=== PATIENT | female | born 1980 | race Caucasian/White ===

== ENCOUNTER 2016-08-26 11:57 | Emergency (ER) | payer OTHER | END 2016-08-26 12:00 | disposition home or self-care (01) | LOC: CED 11:57 | DX: R41.3 Other amnesia (principal); J45.909 Unspecified asthma, uncomplicated; I10 Essential (primary) hypertension; F41.9 Anxiety disorder, unspecified; F32.9 Major depressive disorder, single episode, unspecified; Z88.0 Allergy status to penicillin; Z88.8 Allergy status to other drugs, medicaments and biological substances | CPT/HCPCS: 99282 ==

== ENCOUNTER 2016-12-31 10:10 | Inpatient (IN) | payer OTHER ==
--- NOTE | ~2016-12-31 | DS ---
Unit #: [id number] #: [id number] Patient: KEKE SUMMERS [id number] [facility] [address] [place] [address] [id number] I MR#: [id number] NAME: KEKE SUMMERS ROOM: P252 Age: 36 Sex: F Admission Date: 12/31/2016 : 1980 Discharge Date: 01/02/2017 Attending Physician: Wisam Gilliland M.D. Primary Care Physician: Generic Doctor Not In System DISCHARGE SUMMARY REASON FOR ADMISSION The patient is a 36-year-old single white female admitted to the [facility] after she had presented to this facility voicing positive suicidal ideation. HOSPITAL COURSE The patient was seen by this physician on the afternoon of 01/01/2017. At that time, the patient demanded discharge from the hospital stating that she would refuse to participate in any programming or leave the room for any reason. It was explained to the patient that she had made suicidal threats at the time of her admission to the hospital and hence would need to be observed for another 24 hours. At this, the patient slammed the door loudly and nearly required management. At no point did the patient allow during interview for any discussion of her medications, prior treatment, etc., instead demanding the entire time to leave the hospital and claiming that she had been on the unit since 10:30 the day before and had been ignored by this physician. It was subsequent noted that the patient had not arrived on the unit till approximately 3 p.m. about 2 hours after this physician had finished rounding on the unit. When generally confronted regarding this, the patient accused this physician of lying. Whatever the case, when seen by this physician on the morning of 01/02, the patient again denied suicidal ideation. She remained seclusive to room with little participation within the therapeutic milieu. At that time, she demanded to know why this physician had done nothing to change her medications stating "that is why I came here." I explained to the patient that we had not been able to engage in a thorough evaluation of her medication treatment history, response to medications. However, given her incessant demands for discharge, I suggested that she consider medication changes with outpatient providers in the future. At that point, discharge was ordered. FINAL DIAGNOSES 1. Dysthymic disorder. 2. Borderline personality disorder. 3. Environmental allergies. 4. Asthma. 5. Hypertension. 6. Osteoarthritis. DISPOSITION ON DISCHARGE The patient was discharged on the following medications: 1. Metoprolol ER 25 mg daily for hypertension. 2. Meloxicam 15 mg daily for pain. 3. Cymbalta 60 mg daily for depression. Unit #: [id number] #: [id number] Patient: KEKE SUMMERS 4. Hydrochlorothiazide 12.5 mg daily for hypertension. 5. Singulair 10 mg daily for environmental allergies. 6. Bupropion SR 150 mg daily for depression. 7. Junel control 1 tablet daily for contraception. 8. Ventolin HFA 2 puffs q. 4 hours p.r.n. shortness of air. 9. Tetrahydrozoline eye drops 0.05% for red eyes. 10. Epi-Pen for allergic reaction. 11. Advair Diskus 150/50 twice daily for shortness of air. DIET AND ACTIVITY No dietary or physical restrictions placed on the patient at the time of discharge given her lack of investment in treatment and degree of entitlement and characterologic pathology. PROGNOSIS Must be considered guarded. Dictated by... Zully Wick TD: 01/03/2017 09:16 JOB #: [id number] DISCHARGE SUMMARY Page 1 of 1 X Wisam Gilliland MD X DISCHARGE SUMMARY
--- NOTE | ~2016-12-31 | PA ---
Unit #: [id number] #: [id number] Patient: KEKE SUMMERS [id number] [facility] [address] [place] [address] [id number] I MR#: [id number] NAME: KEKE SUMMERS ROOM: P252 Age: 36 Sex: F Admission Date: 12/31/2016 : 1980 Date of Assessment: 01/01/2017 Attending Physician: Wisam Gilliland M.D. Admitting Physician: Wisam Gilliland M.D. Primary Care Physician: Generic Doctor Not In System PSYCHIATRIC ASSESSMENT IDENTIFYING INFORMATION The patient is a 36-year-old white female admitted after she has presented to this facility claiming to be suicidal. CHIEF COMPLAINT "Let me the fuck out of here." INFORMANT(S) Patient and chart, reliability good. HISTORY OF PRESENT ILLNESS The patient is a 36-year-old white female who was admitted after presenting to this facility yesterday voiding positive suicidal ideation. The patient reported that she felt as though she was "going to have a breakdown" and reported that she had been able to leave her bed for 2 days. She also reported appetite but had reported positive thoughts of suicide with plan to crash her automobile. The patient has recently moved to [facility] from [place], [place], which she describes as "hell." She reports that she did see a therapist and psychiatrist there but has not yet made arrangements to follow with the psychiatrist in the [place] area. The patient is today demanding discharge from the hospital and denying suicidal ideation. She did in fact deny suicidal ideation at the time of her initial evaluation here. She is prescribed Cymbalta and Wellbutrin for her depressive symptoms and states that she has been compliant with these. She denies abuse of any psychoactive substances. She lives with her 13-year-old child and live-in boyfriend. The patient is currently angrily demanding discharge from the hospital and refusing to participate within the therapeutic milieu. PAST PSYCHIATRIC HISTORY The patient denies prior psychiatric hospitalization. She has been treated by a therapist and psychiatrist in [place] in the past. PAST MEDICAL HISTORY The patient suffers from hypertension, osteoarthritis, environmental allergies, and asthma. MEDICATIONS 1. Advair Discuss. 2. Epi-Pen. 3. Tetrahydrozoline. 4. Ventolin. 5. Junel. Unit #: [id number] #: [id number] Patient: KEKE SUMMERS 6. Bupropion SR. 7. Singulair. 8. Hydrochlorothiazide. 9. Cymbalta. 10. Meloxicam. 11. Metoprolol ER. ALLERGIES Penicillin, latex, detergent, Reglan, shell fish. FAMILY HISTORY The patient reports that Asperger's runs on my father's side of the family. SOCIAL HISTORY The patient lives with her live-in boyfriend and 13-year-old child. 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 MENTAL STATUS EXAMINATION Examination at this time reveals the patient to be an obese somewhat disheveled white female appearing her stated age. She is in no apparent physical distress at the time of the examination. She is awake, alert, and oriented in all spheres. Her mood is irritable and angry. Her affect labile. Speech is generally well-coherent. There are no gross deficits in memory or cognition noted. Intelligence is judged to be in the average range based on fund of knowledge. The patient is less than optimally cooperative during interview. She is currently denying suicidal or homicidal ideation or psychotic features. Judgment and insight appear to be reasonably intact. ASSETS AND LIABILITIES The patient's assets are to be assessed. Liabilities: Profound characterologic pathology. DIAGNOSTIC IMPRESSION 1. Dysthymic disorder. 2. Borderline personality disorder. 3. Environmental allergies. 4. Asthma. 5. Hypertension. 6. Osteoarthritis. TREATMENT PLAN The patient remains hospitalized for safety and stabilization given threats made at the time of admission. I have spoken with the patient today frankly regarding our expectations of our participation within the therapeutic milieu. She is refusing to leave her room to eat or participate in any milieu activities inasmuch as it is doubtful that she will gain any benefit from being in the hospital. I will plan to observe the patient for 24 hours not attempting any medication changes. At the very least, it will be my hope to help the patient with arrangements for post-discharge treatment here in the [facility]. It is worth noting that the patient claims that she arrived at this facility yesterday at 10:30 and on the unit at 12:30 when in fact she arrived at the hospital at 12:29 and was admitted to the unit after 3 o'clock. There is an extremely strong manipulative and characterologic streak to the patient's presentation as well as a strong sense of entitlement evident during today's interview. Unit #: [id number] #: [id number] Patient: KEKE SUMMERS ESTIMATED LENGTH OF STAY 1 to 2 days. Dictated by... Wisam Gilliland M.D. CB/lorri TD: 01/01/2017 13:47 JOB #: [id number] PSYCHIATRIC ASSESSMENT Page 1 of 1 X Wisam Gilliland MD X PSYCHIATRIC ASSESSMENT
--- NOTE | ~2016-12-31 | HP ---
Unit #: [id number] #: [id number] Patient: KEKE SUMMERS [id number] [place] [address] [id number] I MR#: [id number] NAME: KEKE SUMMERS ROOM: P252 Age: 36 Sex: F Admission Date: 12/31/2016 : 1980 Attending Physician: Wisam Gilliland M.D. Admitting Physician: Wisam Gilliland M.D. Primary Care Physician: Pratik Doctor Not In System HISTORY AND PHYSICAL HISTORY OF PRESENT ILLNESS with depression and after verbalizing wanting to hurt herself. PAST MEDICAL HISTORY 1. Obesity. 2. High blood pressure. PAST SURGICAL HISTORY 1. T and A. 2. ACL repair. 3. Bilateral carpal tunnel release. ALLERGIES Penicillin, Reglan. SOCIAL HISTORY Vaps on a regular basis. Drinks alcohol rarely. Admits to using marijuana daily. FAMILY HISTORY Medically noncontributory. REVIEW OF SYSTEMS CONSTITUTIONAL: No fever or chills. HEENT: Denies any sore throat, ear pain or runny nose. CARDIOVASCULAR: Denies chest pain, irregular heart rhythm or palpitations. CHEST: Denies shortness of breath or cough. No hemoptysis. GASTROINTESTINAL: Denies nausea, vomiting, diarrhea or chronic constipation. ENDOCRINE: Denies history of increased thirst or urination. No recent significant weight loss or gain. GENITOURINARY: Denies dysuria, frequency, or hematuria. SKIN: Denies any rashes. HEMATOLOGIC: Denies history of increased bleeding or bruising. MUSCULOSKELETAL: Denies any hot, swollen joints. No generalized muscle pain. NEUROLOGIC: Denies problems with vision or speech. No frequent, severe headaches. No numbness, tingling or weakness in any extremities. Denies loss of bladder or bowel control. CURRENT MEDICATIONS 1. Zyban SR 150 mg daily. Unit #: [id number] #: [id number] Patient: KEKE SUMMERS 2. Singulair 10 mg daily. 3. HCTZ 12.5 mg daily. 4. Cymbalta 60 mg daily. 5. Mobic 15 mg daily. 6. Toprol XL 25 mg daily. 7. Symbicort b.i.d. 8. Milk of Magnesia p.r.n. 9. Maalox p.r.n. 10. Tylenol p.r.n. PHYSICAL EXAMINATION GENERAL: Alert, well-nourished, in no apparent distress. VITAL SIGNS: Blood pressure 120/76, heart rate 86, respirations 16, temperature 98.6. WEIGHT: 207. HEIGHT: 5 feet 6 inches. SKIN: Warm and dry without rash or lesion. HEENT: Normocephalic. TMs not viewed. Oral and nasal passages clear. Conjunctivae clear. PERRLA. EOMs intact. NECK: Supple without lymphadenopathy or thyromegaly. HEART: Regular rate and rhythm without murmur. LUNGS: Clear. ABDOMEN: Soft, nontender. : Not done. EXTREMITIES: No evidence of cyanosis, clubbing or edema. Moves all without focal deficit. NEUROLOGICAL: Grossly within normal limits. Cranial Nerves: II: Visual more are intact. III, IV AND : Extraocular movements are intact. Pupils are equal, round and reactive to light. V: Facial sensation is grossly normal. VII: Facial movements and expression are normal. VIII: Auditory acuity grossly intact. IX, X: Uvula is midline. Phonation is normal. XI: Patient shrugs shoulders and turns head normally. XII: Tongue protrudes in the midline. Sensory and Motor Function: Sensory and motor sensation is grossly normal. Motor: moves all extremities well. Coordination: Gait is normal. Deep Tendon Reflexes: Intact. IMPRESSION Psychiatric admission. RECOMMENDATIONS PSYCHIATRIC: Per psychiatrist. MEDICAL: See no contraindication to participate in facility's activities. MEDICAL PROGNOSIS Good. MEDICAL CONDITION Stable. Dictated by... Angie Nath P.A.-C. for Caterina Blount M.D. Unit #: [id number] #: [id number] Patient: KEKE SUMMERSLEONARDA/radha TD: 12/31/2016 18:44 JOB #: [id number] HISTORY AND PHYSICAL Page 1 of 1 X Angie Nath HISTORY AND PHYSICAL
[2017-01-01 12:52] LABS: BASOPHIL% 0.3 % (0-2.5); EOSINOPHIL# 0.2 X10e3 (0-0.7); EOSINOPHIL% 2.6 % (0.0-7.0); HEMOGLOBIN 14.3 gm/dL (12.0-16.0); LYMPHOCYTE# 1.7 X10e3 (1.0-3.5); LYMPHOCYTE% 22.9 % (17.0-45.0); MEAN CELL VOLUME 82.6 FL (83-96); MEAN CORPUSCULAR HEMOGLOBIN 28.8 PG (28-34); MEAN CORPUSCULAR HGB CONC 34.8 g/dL (30-36); MEAN PLATELET VOLUME 8.7 FL (6.5-11.5); MONOCYTE# 0.4 X10e3 (0-1.0); MONOCYTE% 5.9 % (3.0-12.0); NEUTROPHIL# 5.1 X10e3 (1.5-7.1); NEUTROPHIL% 68.3 % (40-75); PLATELET COUNT 196 X10e3 (140-420); RED BLOOD COUNT 4.97 X10e (3.90-5.30); RED CELL DISTRIBUTION WIDTH 12.9 % (11.0-15.5); WHITE BLOOD COUNT 7.5 X10e3 (4.0-10.5)
[2017-01-01 13:00] LABS: DIFF IND NO
[2017-01-01 13:06] LABS: ALBUMIN SERUM 4.2 g/dL (3.5-5.0); CALCIUM SERUM 9.5 mg/dL (8.4-10.2); POTASSIUM 4.1 mmol/L (3.5-5.1); PROTEIN TOTAL SERUM 7.3 g/dL (6.0-8.3)
== END 2017-01-02 15:15 | disposition home or self-care (01) | DRG 881 ==
LOC: P2L 12:29
PROVIDERS: Specialist
DX: F34.1 Dysthymic disorder (principal); R45.851 Suicidal ideations; I10 Essential (primary) hypertension; F60.3 Borderline personality disorder; J45.909 Unspecified asthma, uncomplicated; M19.90 Unspecified osteoarthritis, unspecified site; Z91.040 Latex allergy status; Z88.0 Allergy status to penicillin; Z88.8 Allergy status to other drugs, medicaments and biological substances; Z91.013 Allergy to seafood; Z91.048 Other nonmedicinal substance allergy status
CPT/HCPCS: 80053; 84703; 85025